=== PATIENT | female | born 1960 | race African-American/Black ===

== ENCOUNTER → 2019-09-01 | Outpatient (CLI) | payer OTHER | LOC: BC 08-28 14:30 | DX: Z12.31 Encounter for screening mammogram for malignant neoplasm of breast (principal) ==

== ENCOUNTER → 2019-09-15 | Outpatient (CLI) | payer OTHER | LOC: ULTRA 13:48 | DX: N60.02 Solitary cyst of left breast (principal); N63.10 Unspecified lump in the right breast, unspecified quadrant ==

== ENCOUNTER 2020-03-08 20:38 | Emergency (ER) | payer OTHER ==
[~2020-03-08] VITALS: Ht 160 cm; Wt 76.2 kg
[2020-03-08] MEDS ORDERED: GLUMETZA500 PO (21:33)
[2020-03-08] MEDS ORDERED: LIPITOR10 MG PO (21:34)
[2020-03-08] MEDS ORDERED: NORVASC 2.5 MG2.5 M1 PO (21:34)
[2020-03-08 21:36] VITALS: BP 154/96
== END 2020-03-08 21:47 | disposition home or self-care (01) ==
LOC: ER 20:38
DX: R06.02 Shortness of breath (principal); R11.2 Nausea with vomiting, unspecified; R05 Cough; R19.7 Diarrhea, unspecified; R51 Headache; R09.81 Nasal congestion; Z20.828 Contact with and (suspected) exposure to other viral communicable diseases; Z79.899 Other long term (current) drug therapy; Z88.2 Allergy status to sulfonamides; Z88.8 Allergy status to other drugs, medicaments and biological substances

== ENCOUNTER → 2020-05-11 | Outpatient (CLI) | payer OTHER ==
[~2020-05-11] MED LIST: GLUMETZA500 PO; LIPITOR10 MG PO; NORVASC 2.5 MG2.5 M1 PO
== END ==
LOC: BC 07:42 → ULTRA 07:42 → BC 15:19
PROVIDERS: ATTEND Internal Medicine
DX: N60.01 Solitary cyst of right breast (principal); N63.11 Unspecified lump in the right breast, upper outer quadrant; R89.9 Unspecified abnormal finding in specimens from other organs, systems and tissues; Z09 Encounter for follow-up examination after completed treatment for conditions other than malignant neoplasm

== ENCOUNTER → 2020-09-06 | Outpatient (CLI) | payer OTHER ==
[2020-09-06 09:53] LABS: ALBUMIN 4.1 g/dL (3.4-5.0); ANION GAP 13 mmol/L (7-16); BUN 13 mg/dL (7-18); CALCIUM 9.1 mg/dL (8.5-10.1); CHLORIDE 103 mmol/L (98-107); CHOLESTEROL 207 mg/dL (<200); CO2 26 mmol/L (21-32); CREATININE 0.9 mg/dL (0.6-1.0); GLUCOSE 124 mg/dL (74-106); HDL CHOLESTEROL 73 mg/dL (>40); LDL CHOLESTEROL 120 mg/dL (<100); POTASSIUM 3.8 mmol/L (3.5-5.1); SGOT 19 U/L (15-37); SGPT 34 U/L (30-65); SODIUM 142 mmol/L (136-145); TC:HDL 2.8 Ratio (Not establshd); TOTAL BILIRUBIN 0.5 mg/dL (0.2-1.0); TOTAL PROTEIN 8.1 g/dL (6.4-8.2); TRIGLYCERIDE 70 mg/dL (<150); VLDL 14 mg/dL (<40)
== END ==
LOC: LAB 08:24
PROVIDERS: ATTEND Internal Medicine
DX: E78.5 Hyperlipidemia, unspecified (principal); E11.9 Type 2 diabetes mellitus without complications; I10 Essential (primary) hypertension

== ENCOUNTER → 2021-05-06 | Outpatient (CLI) | payer OTHER | LOC: BC 04-12 15:17 | PROVIDERS: ATTEND Internal Medicine | DX: Z12.31 Encounter for screening mammogram for malignant neoplasm of breast (principal); N63.20 Unspecified lump in the left breast, unspecified quadrant ==